=== PATIENT | female | born 1945 | race Caucasian/White ===

== ENCOUNTER 2021-09-22 12:46 | Emergency (ER) | payer BC, MEDICARE ==
[~2021-09-22] VITALS: Ht 157.5 cm; Wt 65.5 kg
[2021-09-22 14:00] LABS: BASO % 0.2 % (0.0-1.0); HEMOGLOBIN 12.1 g/dl (12.0-15.5); LYMPH # 0.8 10^3/uL (1.5-5.0); LYMPH % 18.3 % (24.0-44.0); MEAN CORPUSCULAR HEMOGLOBIN 31.1 pg (27.0-33.0); MEAN CORPUSCULAR HGB CONC 33.6 g/dl (32.0-36.5); MEAN CORPUSCULAR VOLUME 92.5 fl (80.0-96.0); MONO # 0.2 10^3/uL (0.0-0.8); MONO % 5.3 % (2.0-8.0); NEUTROPHILS # 3.2 10^3/uL (1.5-8.5); NEUTROPHILS % 74.1 % (36.0-66.0); PLATELET COUNT, AUTOMATED 167 10^3/uL (150-450); RED BLOOD COUNT 3.89 10^6/uL (4.00-5.40); WHITE BLOOD COUNT 4.3 10^3/uL (4.0-10.0)
[2021-09-22 14:06] LABS: INR 1.02; PARTIAL THROMBOPLASTIN TIME 28.1 SECONDS (25.9-37.0); PROTHROMBIN TIME 13.8 SECONDS (12.7-14.5)
[2021-09-22 14:20] LABS: CK-MB VALUE MASS < 1.0 NG/ML (<3.6); CPK CREATINE PHOSPHOKINASE 151 U/L (26-192); MB/CK RELATIVE INDEX 0.66 (< OR =4)
[2021-09-22 14:25] LABS: BLOOD UREA NITROGEN 11 MG/DL (7-18); CALCIUM LEVEL 9.7 MG/DL (8.8-10.2); CARBON DIOXIDE LEVEL 23 MEQ/L (21-32); CHLORIDE LEVEL 107 MEQ/L (98-107); CREATININE FOR GFR 0.86 MG/DL (0.55-1.30); FREE T4 1.04 NG/DL (0.76-1.46); GLOMERULAR FILTRATION RATE > 60.0 (>39); GLUCOSE, FASTING 146 MG/DL (70-100); POTASSIUM SERUM 4.2 MEQ/L (3.5-5.1); SODIUM LEVEL 141 MEQ/L (136-145)
[2021-09-22 15:06] LABS: C REACTIVE PROTEIN QUANTITATIV 0.33 MG/DL (0.00-0.30)
[2021-09-22] MEDS ORDERED: NS 1,000 ML IV ONE (15:20)
[2021-09-22] MEDS ORDERED: METOCLOPRAMIDE INJ 10MG/2ML VIAL (J2765 PER 1) IV ONE (15:20)
[2021-09-22] MEDS ORDERED: ACETAMINOPHEN 500 MG TAB PO ONE (15:20)
[2021-09-22] MEDS ORDERED: KETOROLAC 30 MG/ML 1ML VIAL IV ONE (15:20)
[2021-09-22 15:34] LABS: ERYTHROCYTE SEDIMENTATION RATE 26 mm/hr (0-30)
[2021-09-22] MEDS ORDERED: LOSARTAN 50MG TABLET PO ONE (17:45)
[2021-09-22 17:52] VITALS: BP 207/84
[2021-09-22] MEDS ORDERED: LOSA50TA28 PO (18:47)
[2021-09-22] MEDS ORDERED: MECL1TAB31 PO (18:51)
[2021-09-22 19:18] VITALS: BP 170/78
== END 2021-09-22 19:20 | disposition home or self-care (01) ==
LOC: M ED 12:46
DX: I10 Essential (primary) hypertension (principal); E78.00 Pure hypercholesterolemia, unspecified; Z79.899 Other long term (current) drug therapy
CPT/HCPCS: 70450; 71045; 80048; 82550; 82553; 83735; 84439; 84443; 84484; 85025; 85610; 85652; 85730; 86140; 87486; 87581; 87633; 87798; 93005; 93041; 94760; 96361; 96374; 96375; 99285; J1885; J2765